=== PATIENT | female | born 1960 | race Caucasian/White ===

== ENCOUNTER 2019-09-19 12:03 | Emergency (ER) | payer BC, OTHER ==
[~2019-09-19] VITALS: Ht 162.6 cm; Wt 98.0 kg
[2019-09-19 12:09] VITALS: Ht 162.6 cm; Wt 98.0 kg
[2019-09-19 13:38] VITALS: BP 112/69
== END 2019-09-19 13:39 | disposition home or self-care (01) ==
LOC: ED 12:03
DX: T78.40XA Allergy, unspecified, initial encounter (principal); X58.XXXA Exposure to other specified factors, initial encounter; M79.602 Pain in left arm; Z90.710 Acquired absence of both cervix and uterus; Z98.84 Bariatric surgery status; Z88.2 Allergy status to sulfonamides
CPT/HCPCS: J1885